=== PATIENT | female | born 1975 | race Caucasian/White ===

== ENCOUNTER → 2024-01-27 09:36 | Outpatient (REF) | payer BC, SELFPAY | LOC: RAD 09:36 | PROVIDERS: ATTENDING PHYSICIAN Internal Medicine Hematology & Oncology; FAMILY PHYSICIAN Emergency Medicine | DX: C50.111 Malignant neoplasm of central portion of right female breast (principal); D50.0 Iron deficiency anemia secondary to blood loss (chronic) | CPT/HCPCS: 77080 ==